=== PATIENT | male | born 1965 | race Caucasian/White ===

== ENCOUNTER 2018-02-28 13:02 | Day surgery (SDC) | payer OTHER, SELFPAY ==
--- NOTE | 2018-02-28 | PATH_ITS ---
[facility] Accession Number: [id number] . 01 Material submitted: . RECTAL POLYP AT 10CM . 02 Diagnosis: Rectum, Polyp at 10 cm, Biopsy: Inflammatory pseudopolyp. Additional levels were examined. Negative for dysplasia and malignancy. MRV/03/04/2018 . 02 Electronically signed: . Edel Peterson MD, Pathologist NPI- [id number] . 01 Gross description: . Received one formalin-filled container, labeled with the patient's name, labeled rectal polyp at 10 cm. The specimen consists of a 0.3 cm portion of tissue, entirely submitted in one cassette. ([id number]) /FRR . 02 Pathologist provided ICD-10: K63.5 . 02 CPT . 018100 Performed at: 01 [facility] [address] [id number] MD Benjamín Christy MD Phone: [phone] Performed at: 02 [facility] [place] [address] [place] [id number] MD Geo King MD Phone: [phone]
[2018-02-28 13:23] VITALS: BP 123/77; PULSE 62; RESP 16; TEMP 37; O2SAT 98; BMI 29.0
[2018-02-28] MEDS: SODIUM CHLORIDE 0.9% 1,000 ML 200 ML IV (13:32)
--- NOTE | 2018-02-28 13:54 | PM.HP.1 ---
History of Present Illness Date Patient Seen: 02/28/18 Time Patient Seen: 13:54 Chief complaint: [id number] Narrative: 52-year-old male who presents for colorectal screening. He has a strong family history of colon cancer in both paternal and maternal grandparents. His last colonoscopy was 10 years ago which he reports was normal. He has had no gastrointestinal symptoms. Denies any nausea, vomiting, abdominal pain, unintended weight loss, change in bowel habits, constipation, diarrhea, melena, hematochezia, or bright red blood per rectum. Patient History Medical History History of wisdom tooth extraction (Acute) Hyperlipidemia (Acute) Squamous cell carcinoma of skin (Acute) Surgical History History of colonoscopy (Acute) Family & Social History Family History: Reviewed 02/28/18 by Richy Benton MD Social History: household members spouse,children Meds Home Medications Medication Instructions Recorded Confirmed Type MULTIVITAMIN (#MULTIPLE VITAMINS) 1 cap PO Q DAY #0 03/21/12 02/28/18 History Allergies Allergy/AdvReac Type Severity Reaction Status Date / Time Sulfamethoxazole Allergy Mild SEVERE Uncoded 12/19/17 13:09 ILLNESS Trimethoprim Allergy Mild VOMITING/ Uncoded 12/19/17 13:09 SEVERE ILLNESS SIMVASTATIN AdvReac Intermediate myalgias Uncoded 12/19/17 13:09 Review of Systems Review of Systems All systems reviewed & are unremarkable except as noted in HPI and below Exam Vital Signs (past 8 hours): Vital Signs - 8 hr 02/28/18 13:23 Temperature 98.6 F Pulse Rate 62 Respiratory Rate 16 Blood Pressure 123/77 H Pulse Oximetry 98 Pulse Oximetry 98 Oxygen Delivery Method Room Air Narrative Exam Narrative: Well-nourished well-developed male in no acute distress. Alert orient x3 Sclera nonicteric Chest clear to auscultation bilaterally with regular rate and rhythm. No murmurs, gallops, or rubs Abdomen is soft, nondistended, nontender, no masses. No hepatomegaly Extremities show no clubbing or cyanosis Objective Labs Labs: No recent laboratory or radiographic studies for review Assessment & Plan (1) Family history of colon cancer: Current visit: Yes Status: Acute Plan: Assessment/Plan Narrative: 52-year-old male with family history of colon cancer now requiring colorectal screening for such. It has been 10 years since his last exam. Colonoscopy is again recommended. Technical details of the procedure were discussed at length. Risks, benefits, alternatives were explained. Risks including but not limited to sedation, aspiration, bleeding, pain, missed lesion, incomplete examination, need for further radiographic studies, colonic perforation, need for major abdominal surgery, and all attendant risks of major surgery were explained in detail. All questions were answered to his satisfaction, and he voiced understanding. Consent was placed on the chart. We will proceed as above.
--- NOTE | 2018-02-28 13:59 | P.HP_ITS ---
History of Present Illness Date Patient Seen: 02/28/18 Time Patient Seen: 13:54 Chief complaint: [id number] Narrative: 52-year-old male who presents for colorectal screening. He has a strong family history of colon cancer in both paternal and maternal grandparents. His last colonoscopy was 10 years ago which he reports was normal. He has had no gastrointestinal symptoms. Denies any nausea, vomiting, abdominal pain, unintended weight loss, change in bowel habits, constipation, diarrhea, melena, hematochezia, or bright red blood per rectum. Patient History Medical History History of wisdom tooth extraction (Acute) Hyperlipidemia (Acute) Squamous cell carcinoma of skin (Acute) Surgical History History of colonoscopy (Acute) Family & Social History Family History: Reviewed 02/28/18 by Richy Benton MD Social History: household members spouse,children Meds Home Medications Medication Instructions Recorded Confirmed Type MULTIVITAMIN (#MULTIPLE VITAMINS) 1 cap PO Q DAY #0 03/21/12 02/28/18 History Allergies Allergy/AdvReac Type Severity Reaction Status Date / Time Sulfamethoxazole Allergy Mild SEVERE Uncoded 12/19/17 13:09 ILLNESS Trimethoprim Allergy Mild VOMITING/ Uncoded 12/19/17 13:09 SEVERE ILLNESS SIMVASTATIN AdvReac Intermediate myalgias Uncoded 12/19/17 13:09 Review of Systems Review of Systems All systems reviewed & are unremarkable except as noted in HPI and below Exam Vital Signs (past 8 hours): Vital Signs - 8 hr 3 02/28/18 13:23 Temperature 98.6 F Pulse Rate 62 Respiratory Rate 16 Blood Pressure 123/77 H Pulse Oximetry 98 Pulse Oximetry 98 Oxygen Delivery Method Room Air Narrative Exam Narrative: Well-nourished well-developed male in no acute distress. Alert orient x3 Sclera nonicteric Chest clear to auscultation bilaterally with regular rate and rhythm. No murmurs , gallops, or rubs Abdomen is soft, nondistended, nontender, no masses. No hepatomegaly Extremities show no clubbing or cyanosis Objective Labs Labs: No recent laboratory or radiographic studies for review Assessment & Plan (1) Family history of colon cancer: Current visit: Yes Status: Acute Plan: Assessment/Plan Narrative: 52-year-old male with family history of colon cancer now requiring colorectal screening for such. It has been 10 years since his last exam. Colonoscopy is again recommended. Technical details of the procedure were discussed at length. Risks, benefits, alternatives were explained. Risks including but not limited to sedation, aspiration, bleeding, pain, missed lesion, incomplete examination, need for further radiographic studies, colonic perforation, need for major abdominal surgery, and all attendant risks of major surgery were explained in detail. All questions were answered to his satisfaction, and he voiced understanding. Consent was placed on the chart. We will proceed as above.
--- NOTE | 2018-02-28 13:59 | PM.PREOP ---
Pre-operative Note Interval Note Pre-op Check: History & Physical Reviewed by Physician, Exam Performed and History & Physical exam performed today H&P completed within 30 days and has changed as indicated here:: 52-year-old male with family history colon cancer. Last colonoscopy was 10 years ago. He require surveillance. Colonoscopy is once again recommended. Patient seen and examined today. Documents placed on the chart dated today. We will proceed as planned with endoscopy. ASA Class (for procedural sedation): I
[2018-02-28] MEDS: fentaNYL 250 MCG/5 ML INJ IV (14:12)
[2018-02-28] MEDS: MIDAZOLAM 5 MG/5 ML VIAL IV (14:12)
--- NOTE | 2018-02-28 14:24 | PM.OP.ENDO ---
Operative Date/Time/Diagnoses - Date of procedure: 02/28/18 Time of procedure: 14:24 Pre-op diagnosis: Family history colon cancer Post-op diagnosis: other (Rectal polyp) Procedure & Clinicians Study performed: 1. Sedation per surgeon 2. Colonoscopy with cold forceps polypectomy Same procedure as scheduled: Yes Indications: 52-year-old male with strong family history of colon cancer who presents for surveillance. It has been 10 years from his prior exam. Colonoscopy is once again recommended. Surgeon: Richy Benton Procedure Notes SCOAP/Timeout: Yes Procedure in detail: After obtaining informed consent, the patient was brought to the GI suite and placed in the left lateral decubitus position on the examination table. After placement of appropriate monitors, the patient was given incremental doses of Versed and Fentanyl until an appropriate level of sedation was achieved. A time out was held per SCOAP protocol. A digital rectal examination was performed and did not reveal any masses or obstructing lesions. The colonoscope was gently passed into the patient's anus and the entire colon navigated to the level of the cecum with minimal difficulty. Once in the cecum, the scope was withdrawn being sure to go before and beyond all mucosal folds and prominences and get an excellent examination. The findings are noted above. At the level of the rectal vault, the scope was retroflexed and the internal anal canal was examined. The scope was straightened and air aspirated from the colon. The instrument was removed from the patient's body and the procedure was concluded. The patient was allowed to awaken from sedation without difficulty and taken to the post-anesthesia care unit in good condition. Scope withdrawal time: 11:25 min Sedation minutes: 21 Findings: polyp (Rectal polyp at 10 cm) and other findings (Otherwise normal colon and rectum) Specimen(s): other (Rectal polyp) Complications: none Recommendations: Colonscopy in 5 years Plan for aftercare: 1. Discharge to home Follow up: as needed Disposition: same day surgery
[2018-02-28 14:29] VITALS: BP 126/75; PULSE 65; RESP 15; TEMP 36.6; O2SAT 97
[2018-02-28 14:45] VITALS: BP 122/79; PULSE 60; RESP 16; TEMP 36.6; O2SAT 97
== END 2018-02-28 14:54 | disposition home or self-care (01) ==
PROVIDERS: Visit Provider Surgery
PROC: 0DJD8ZZ Inspection of Lower Intestinal Tract, Via Natural or Artificial Opening Endoscopic (ICD-10-PCS; CPT 45378; principal; 2018-02-28 14:00)
DX: Z12.11 Encounter for screening for malignant neoplasm of colon (principal); Z80.0 Family history of malignant neoplasm of digestive organs; E78.5 Hyperlipidemia, unspecified; D12.8 Benign neoplasm of rectum
CPT/HCPCS: 45380; 99152; J2250; J3010

== ENCOUNTER 2018-11-12 13:53 | Day surgery (SDC) | payer OTHER, SELFPAY ==
[2018-11-11 08:09] VITALS: BMI 30.3
--- NOTE | 2018-11-12 | PATH_ITS ---
[facility] Accession Number: [id number] . 01 Material submitted: . RIGHT LATERAL HEMORRHOID . 02 Diagnosis: Right Lateral Hemorrhoid: External hemorrhoid, partially thrombosed, negative for atypia. MRV/11/14/2018 . 02 Electronically signed: . Noé Cristobal MD, Pathologist NPI- [id number] . 01 Gross description: . RIGHT LATERAL HEMORRHOID: Received in formalin is 1 fragment of perez rubbery tissue measuring 2.6 x 1.2 x 0.7 cm. Tissue is inked. Specimen is sectioned and submitted in patient financial representative sections in 1 cassette. /CKI /CKI . 02 Pathologist provided ICD-10: K64.9 . 02 CPT . 224721 Performed at: 01 [facility] [address] [id number] MD Benjamín Christy MD Phone: [phone] Performed at: 02 [facility] [address] [address] [place], [place] [id number] MD Edel Peterson MD Phone: [phone]
[2018-11-12 14:58] VITALS: BP 142/89; PULSE 72; RESP 16; TEMP 36.7; O2SAT 97; BMI 30.3
[2018-11-12] MEDS: CLINDAMYCIN 900 MG/50 ML PIGGYBACK 50 MG IV (15:53)
--- NOTE | 2018-11-12 15:55 | PM.PREOP ---
Pre-operative Note Interval Note History & Physical reviewed/Exam performed by Physician: Yes Changes to H&P: No H&P completed within 30 days and has changed as indicated here:: Patient seen and examined in the preoperative area. History physical examination on the chart within the last 30 days has not changed. Proceed with hemorrhoidectomy today as planned.
[2018-11-12] MEDS: LIDOCAINE 1% W/EPI INJ 20 ML INJ (16:29)
[2018-11-12] MEDS: DIBUCAINE 1% OINT 28 GM 1 APPLIC TOP (16:30)
[2018-11-12 16:45] VITALS: BP 138/87; PULSE 90; RESP 18; TEMP 36.5; O2SAT 96
[2018-11-12 16:50] VITALS: BP 150/90; PULSE 81; RESP 10; TEMP 37.1; O2SAT 97
[2018-11-12 16:55] VITALS: BP 150/80; PULSE 60; RESP 20; TEMP 37.1; O2SAT 97
--- NOTE | 2018-11-12 17:08 | P.OP_ITS ---
Operative Date/Time/Diagnoses Date of procedure: 11/12/18 Time of procedure: 17:07 Pre-op diagnosis: Thrombosed external right lateral hemorrhoid Post-op diagnosis: same Procedure & Clinicians Procedure: 1. Examination under anesthesia 2. Anoscopy 3. Hemorrhoidectomy of single external and internal right lateral cushion Same procedure as scheduled: Yes Indications: 53-year-old male who presented with thrombosed right lateral external hemorrhoid. He desired hemorrhoidectomy. Surgeon: Richy Benton Click Yes if Unassisted: Yes Anesthesia Type: General Operative Notes Findings: 1. Chronically thrombosed right lateral external hemorrhoid 2. Mildly enlarged grade 2 right lateral internal hemorrhoid in continuity with the above external hemorrhoid 3. Normal distal rectal mucosa and anoderm 4. Normal external hemorrhoids otherwise except as above 5. Normal internal hemorrhoids otherwise except as above Closure Type: primary Specimen(s): other (Right lateral hemorrhoid) Prosthetic devices, grafts, tissues, transplants, or devices: None Estimated Blood Loss (mL): 10 Blood products transfused: none Procedure in detail: After obtaining informed consent the patient was brought to the operating room and left supine on the gurney. After satisfactory induction of anesthesia he was placed in prone katie-knife position. All pressure points were padded appropriately. Buttocks were taped apart and the perineum was prepped and draped in usual sterile fashion. SCOAP time out was performed per standard protocol. Digital rectal examination was performed without any other remarkable findings except the external hemorrhoid as above. The Higuera bivalve anoscope was inserted and the distal anorectal canal and anoderm were meticulously and circumferentially examined. Again, all findings are as above. No evidence of neoplasm, mucosal inflammation, fissures, or fistulas were seen. Attention was then turned to the right lateral hemorrhoid cushion. 0 chromic suture was placed at the apex of the internal hemorrhoid vascular pedicle. Area was infiltrated with 1% lidocaine with 1 :100,000 epinephrine for postoperative analgesia and hemostasis. Anoderm adjacent to the hemorrhoid cushion was then incised in a V pattern using 15 scalpel blade. Meticulous sharp dissection with Metzenbaum scissors proceeded carefully along the submucosal plane thereby excising the hemorrhoid cushion. Great care was taken avoid injury to the sphincter muscles. Specimen was sent for permanent section. The previously placed chromic suture was then used to close the mucosa and anoderm with locking suture. Small defect was left in the anoderm to allow drainage. Hemostasis was verified. Canal was irrigated with copious sterile saline solution and suctioned. Again, hemostasis was verified. Gel-Foam packing impregnated with dibucaine ointment was then placed in the anal canal. Dressing was applied along with mesh undergarment. Patient was returned to the [facility] in supine position and anesthesia was reversed. He was extubated in the operating room and taken recovery stable condition. Complications: none Condition: stable Disposition: PACU Plan for aftercare: 1. Discharge home 2. Follow up in surgery Clinic in the next 2 weeks approximately
[2018-11-12 17:10] VITALS: BP 132/86; PULSE 67; RESP 20; TEMP 36.6; O2SAT 99
--- NOTE | 2018-11-12 17:23 | SUR.PHASEII ---
MAR did not have fluids noted see I&O for lacted ringers total
== END 2018-11-12 17:22 | disposition home or self-care (01) ==
PROVIDERS: PCP Student in an Organized Health Care Education/Training Program; Visit Provider Surgery
PROC: (CPT 46255; principal; 2018-11-12 15:15)
DX: K64.1 Second degree hemorrhoids (principal); K64.5 Perianal venous thrombosis; F17.210 Nicotine dependence, cigarettes, uncomplicated; E78.5 Hyperlipidemia, unspecified
CPT/HCPCS: 46255; J2405; J2704; J3010

== ENCOUNTER → 2021-03-15 16:08 | Outpatient (CLI) | payer OTHER, SELFPAY ==
[2021-03-15 17:01] LABS: Add Manual Diff / Slide Review NO; Basophils Absolute Auto 100 /uL (0-100); Basophils Percent Auto 1.2 % (0-2); Eosinophils Absolute Auto 300 /uL (0-450); Eosinophils Percent Auto 4.6 % (2-4); Hematocrit 43.1 % (41-53); Hemoglobin 14.7 g/dL (13.5-17.5); Lymphocytes Absolute Auto 1500 /uL (1100-4500); Lymphocytes Percent Auto 21.8 % (25-40); Mean Corpuscular Hemoglobin 31.1 PG (26-34); Mean Corpuscular Volume 91.5 fL (80-100); Monocytes Absolute Auto 600 /uL (0-900); Monocytes Percent Auto 8.7 % (3-14); Neutrophils Absolute Auto 4300 /uL (1500-7000); Neutrophils Percent Auto 63.7 % (50-75); Platelet Count 239 X10^3/uL (150-400); Red Blood Cell Count 4.71 X10^6/uL (4.5-5.9); Red Cell Distribution Width 13.3 % (11.6-14.8); White Blood Cell Count 6.8 X10^3/uL (4.5-11.0)
[2021-03-15 17:22] LABS: Alanine Aminotransferase 49 IU/L (<50); Albumin 4.5 g/dL (3.5-5.0); Albumin Globulin Ratio 1.7 (1.0-2.8); Alkaline Phosphatase 64 U/L (38-126); Aspartate Aminotransferase 40 IU/L (17-59); BUN Creatinine Ratio 19.3 (6-22); Bilirubin Total 1.3 mg/dL (0.2-1.3); Blood Urea Nitrogen 17 mg/dL (9-20); C-Reactive Protein Quant < 0.5 mg/dL (<1.0); Calcium 9.4 mg/dL (8.4-10.2); Carbon Dioxide 26 mmol/L (22-32); Chloride 105 mmol/L (98-107); Estimated Glomerular Filt Rate > 60.0 mL/min (>60); Globulin 2.7 g/dL (1.7-4.1); Glucose 86 mg/dL (70-100); HEMOLYSIS < 15 (0-50); Potassium 4.3 mmol/L (3.4-5.1); Sodium 140 mmol/L (137-145); Total Protein 7.2 g/dL (6.3-8.2)
[2021-03-15 17:45] LABS: Erythrocyte Sedimentation Rate 1 MM/HR (0-15)
== END ==
PROVIDERS: PCP Physician Assistant Medical; Referring Provider Nurse Practitioner; Visit Provider Nurse Practitioner
DX: I25.10 Atherosclerotic heart disease of native coronary artery without angina pectoris (principal); I21.4 Non-ST elevation (NSTEMI) myocardial infarction; E78.2 Mixed hyperlipidemia; R00.1 Bradycardia, unspecified; R00.2 Palpitations; R51.9 Headache, unspecified; H53.9 Unspecified visual disturbance
CPT/HCPCS: 36415; 80053; 85025; 85651; 86140

== ENCOUNTER → 2021-07-19 14:05 | Outpatient (CLI) | payer OTHER, SELFPAY ==
--- NOTE | 2021-07-19 | DI.RAD.S_ITS ---
PROCEDURE: XR EYE FOREIGN BODY LT INDICATIONS: PRE MRI SCREENING - PT IN SUBWAIT TECHNIQUE: A single view of the orbits was acquired. COMPARISON: None. FINDINGS: Soft tissues: No metallic foreign bodies are visualized around the orbits. Bones: Bony structures appear unremarkable. Visualized sinuses appear clear. IMPRESSION: No radiopaque orbital foreign body demonstrated. Dictated by: Victoriano Clemens M.D. on 07/19/2021 at 16:44 Approved by: Victoriano Clemens M.D. on 07/19/2021 at 16:49
--- NOTE | 2021-07-19 14:06 | DI.MRI.S_ITS ---
PROCEDURE: MR BRAIN (IAC) WWO CON INDICATIONS: Dizziness and giddiness Sensorineural hearing loss TECHNIQUE: Noncontrast sagittal T1 spin echo, axial FLAIR, axial gradient echo, axial diffusion and ADC through the brain. Axial thin-slice 3D CISS, coronal TruFISP, axial T1 spin echo with fat saturation through the internal auditory canals. After the administration of contrast, thin slice axial and coronal T1 spin echo with fat saturation through the internal auditory canals, and axial T1 spin echo with fat saturation through the brain. COMPARISON: None. FINDINGS: Image quality: Excellent. Cerebellopontine angles: No cerebellopontine angle masses. Inner ear structures appear normally formed. No suspicious enhancement in the internal auditory canal or along the course of the 7th cranial nerve. CSF spaces: Ventricles are normal in size and shape. No extra-axial fluid collections. Basal cisterns are patent. Brain: No intracranial bleeds or mass effects. Mendez-white matter interface is intact. No abnormal intracranial enhancement. Diffusion weighted images demonstrate no acute ischemic insults. Brainstem appears normal. Normal intravascular flow voids are present. Skull and face: Calvarial marrow signal is normal. Orbits appear normal. Sinuses: Sinuses and mastoids are clear. IMPRESSION: No significant abnormality is seen. Specifically, no masses or abnormal enhancement are seen within the cerebellopontine angle cisterns or within the internal auditory canals. Dictated by: Shaan Rojas M.D. on 07/19/2021 at 15:06 Approved by: Shaan Rojas M.D. on 07/19/2021 at 15:07
== END ==
PROVIDERS: PCP Physician Assistant Medical; Referring Provider Otolaryngology; Visit Provider Otolaryngology
DX: R42 Dizziness and giddiness (principal); H90.3 Sensorineural hearing loss, bilateral; H53.2 Diplopia
CPT/HCPCS: 70030; 70553; A9579